=== PATIENT | male | born 1955 | race Caucasian/White ===

== ENCOUNTER 2021-02-18 19:25 | Emergency (ER) | payer MEDICARE, OTHER, SELFPAY ==
--- NOTE | ~2021-02-18 | CT_ITS ---
EXAMINATION: CT HEAD WITHOUT CONTRAST CLINICAL INFORMATION: Status post head injury. COMPARISON: None TECHNIQUE: Contiguous axial imaging was performed from the skull base to vertex without intravenous administration of contrast. This CT examination was performed using dose optimization techniques as appropriate, variously including the following: *Automated exposure control *Adjustment of mA and/or kV according to patient size (this includes techniques or standardized protocols for targeted exams where dose is matched to indication/reason for exam; i.e. extremities or head) *Use of iterative reconstruction technique DLP: 766 mGy-cm FINDINGS: There is no evidence of acute intracranial hemorrhage or territorial infarction. No abnormal mass effect or midline shift is seen. Henriquez to white matter differentiation is well preserved. No extra-axial fluid collections are identified. The ventricles are normal in size. There is no abnormal attenuation within the brain parenchyma. The osseous structures and soft tissues are normal. The mastoid air cells and visualized portions of the paranasal sinuses are well aerated. CT/CT head/brain wo con IMPRESSION: No CT evidence of acute intracranial pathology.
[2021-02-18 20:06] VITALS: BP 123/84; PULSE 55; RESP 16; TEMP 36.2; O2SAT 99; BMI 29.9
[2021-02-18 20:24] VITALS: BP 135/84; PULSE 54; RESP 17; O2SAT 99
--- NOTE | 2021-02-18 20:47 | PC.NURSE ---
Pt to CT
--- NOTE | 2021-02-18 20:51 | PC.NURSE ---
Pt returned from CT
--- NOTE | 2021-02-18 21:17 | ED_ITS ---
HPI - Head Injury General Chief complaint: Head Injury Stated complaint: HEAD INJ Time Seen by Provider: 02/18/21 20:31 Source: patient Mode of arrival: ambulatory Limitations: no limitations History of Present Illness HPI Narrative: Patient for close head injury happened 3 days ago when metal [place] which weighs 20 lb fell on his head while he was working down. Patient denies any loss of consciousness complaining of headache no nausea no vomiting no seizures no memory loss no focal deficit Complaint: head injury Related Data Home Medications Medication Instructions Recorded Confirmed atorvastatin 1 tab PO DAILY 02/18/21 02/18/21 dulaglutide [Trulicity] 1.5 mg SUBCUT QWEEK 02/18/21 02/18/21 empagliflozin [Jardiance] 1 tab PO DAILY 02/18/21 02/18/21 fluticasone propionate 2 spray INTRANASAL DAILY 02/18/21 02/18/21 gabapentin 1 cap PO BEDTIME PRN 02/18/21 02/18/21 lisinopril 1 tab PO DAILY 02/18/21 02/18/21 tizanidine 1 tab PO BEDTIME 02/18/21 02/18/21 Allergies Allergy/AdvReac Type Severity Reaction Status Date / Time Penicillins [PCN] Allergy Itching Verified 02/18/21 20:04 Review of Systems Review of Systems: Yes all other systems are reviewed and are negative ON LICENSE OF [facility] Past Medical History Medical History Arthritis Back pain COVID-19 Diabetes Hyperlipemia Lung cancer Social History Social History Alcohol intake: current Alcohol intake frequency: holidays/special occasions only Smoking Status: Never smoker Use of substances other than those prescribed or required for medical reasons: No Advance Directives: No Advance Directives Information Provided: Yes Physical Exam Vital Signs: Vital Signs: Last Vital Signs Temp 97.1 F 02/18/21 20:06 Pulse 54 02/18/21 20:24 Resp 17 02/18/21 20:24 BP 135/84 02/18/21 20:24 Pulse Ox 99 02/18/21 20:24 Body Mass Index 29.9 Appearance: Alert. Oriented X3. No acute distress. Eyes: PERRLA, No Nystagmus ENT: Pharynx normal. Oral Mucosa moist Neck: Normal inspection. Neck supple. CVS: Normal heart rate and rhythm. Pulses normal. Respiratory: No respiratory distress. Equal air entry bilateral, no wheezing/rales/rhonchi Abdomen: Soft and nontender. Bowel sounds are present, no mass palpable, no CVA tenderness Skin: Skin warm and dry. Normal skin color. Normal skin turgor. Extremities: No lower extremity edema. No calf tenderness Neuro: Oriented X 3. No motor deficit. No sensory deficit.No cerebellar signs , cranial nerves II-XII intact MDM - Head Injury MDM Narrative Medical decision making narrative: Patient has minor closed-head injuries CT scan negative patient alert oriented x3 discharge patient home Discharge Plan Discharge Clinical Impression: Closed head injury Patient Disposition: Home, Self-Care Instructions: Head Injury (ED) Additional Instructions: Rest at home take Tylenol for pain Report to ER if any vomiting seizures change in mental status Prescriptions: No Action atorvastatin 10 mg tablet 1 tab PO DAILY RF: 0 tizanidine 4 mg tablet 1 tab PO BEDTIME RF: 0 gabapentin 300 mg capsule 1 cap PO BEDTIME PRN (Reason: abdominal pain) RF: 0 fluticasone propionate 50 mcg/actuation spray,suspension 2 spray intranasal DAILY RF: 0 lisinopril 2.5 mg tablet 1 tab PO DAILY RF: 0 Jardiance 10 mg tablet 1 tab PO DAILY RF: 0 Trulicity 1.5 mg/0.5 mL pen injector 1.5 mg subcut QWEEK RF: 0
== END 2021-02-18 21:43 | disposition home or self-care (01) ==
PROVIDERS: Emergency Provider Internal Medicine; PCP Internal Medicine
DX: S09.90XA Unspecified injury of head, initial encounter (principal); W20.8XXA Other cause of strike by thrown, projected or falling object, initial encounter; E11.9 Type 2 diabetes mellitus without complications; E78.5 Hyperlipidemia, unspecified; Y93.89 Activity, other specified; Y92.59 Other trade areas as the place of occurrence of the external cause; Y99.0 Civilian activity done for income or pay; Z86.16 Personal history of COVID-19; Z85.118 Personal history of other malignant neoplasm of bronchus and lung; Z79.02 Long term (current) use of antithrombotics/antiplatelets; Z79.4 Long term (current) use of insulin; Z79.899 Other long term (current) drug therapy
CPT/HCPCS: 70450; 99284